=== PATIENT | male | born 1970 | race Caucasian/White ===

== ENCOUNTER 2022-10-12 15:52 | Emergency (ER) | payer BC, OTHER ==
[2022-10-12] MEDS ORDERED: SODIUM CHLORIDE 0.9% 500 ML INFUS.BAG IV ONE (16:14)
[2022-10-12 16:36] VITALS: BMI 23.3
[2022-10-12 16:53] LABS: BASO % 0.3 % (0-2.0); EOS % 0.6 % (0-4.5); HEMATOCRIT 47.4 % (35.4-49); HEMOGLOBIN 16.1 GM/dL (11.7-16.9); MCH 30.8 pg (25.7-33.7); MCHC 33.9 g/dl (32.0-35.9); MEAN CELL VOLUME 90.7 fl (80-96); MEAN PLT VOLUME 8.6 fl (7.5-11.1); MONO % 6.8 % (3.8-10.2); NEUT % 65.3 % (42.8-82.8); PLATELET COUNT 268 10^3/uL (134-434); RBC 5.22 M/mm3 (4.00-5.60); RDW 15.7 % (11.9-15.9); WHITE BLOOD COUNT 12.3 K/mm3 (4.0-10.0)
[2022-10-12 17:11] LABS: VENOUS BASE EXCESS -8.7 mmol/L (-2-2); VENOUS O2 SATURATION 46.6 % (70-80); VENOUS PH 7.309 (7.310-7.410)
[2022-10-12 17:19] LABS: CALCIUM 8.9 mg/dL (8.5-10.1)
[2022-10-12 17:20] LABS: ALBUMIN 4.1 g/dl (3.4-5.0)
[2022-10-12 17:24] LABS: BILIRUBIN,TOTAL 0.3 mg/dL (0.2-1); TOT PROT 7.5 g/dl (6.4-8.2)
[2022-10-12] MEDS ORDERED: LORazepam 2 MG/ML SDV VIAL IVPUSH ONE (17:43)
[2022-10-12 17:45] LABS: LACTIC ACID 3.9 mmol/L (0.4-2.0)
[2022-10-12] MEDS ORDERED: THIAMINE HCL 200 MG/2 ML VIAL IVPB ONE (18:31)
[2022-10-12] MEDS ORDERED: DEXTROSE 5%-LACTATED RINGERS 1,000 ML IV SCH (18:45)
[2022-10-12] MEDS ORDERED: THIAMINE HCL 200 MG/2 ML VIAL ONE (19:35)
[2022-10-12 20:52] LABS: LACTIC ACID 4.2 mmol/L (0.4-2.0)
[2022-10-12 21:37] VITALS: RESP 18
[2022-10-13 00:59] VITALS: BP 114/71; PULSE 89; TEMP 97.6
[2022-10-13 01:00] LABS: LACTIC ACID 3.9 mmol/L (0.4-2.0)
== END 2022-10-13 02:10 | disposition short-term general hospital (02) ==
LOC: JER 15:52
PROC: 3E033NZ Introduction of Analgesics, Hypnotics, Sedatives into Peripheral Vein, Percutaneous Approach (ICD-10-PCS; principal; 2022-10-12)
PROC: 3E033GC Introduction of Other Therapeutic Substance into Peripheral Vein, Percutaneous Approach (ICD-10-PCS; 2022-10-12)
DX: F10.929 Alcohol use, unspecified with intoxication, unspecified (principal); R41.2 Retrograde amnesia; Z20.822 Contact with and (suspected) exposure to COVID-19
CPT/HCPCS: 0241U-QW; 36415; 70450-TC; 71045-TC-FY; 72125-TC; 80053; 80307; 82803; 83605; 85025; 93005; 93010; 99285-25

== ENCOUNTER 2022-10-13 02:40 | Inpatient (IN) | payer BC, OTHER ==
[2022-10-13] MEDS ORDERED: NICOTINE POLACRILEX 2 MG GUM BUC PRN (02:52)
[2022-10-13] MEDS ORDERED: guaiFENesin 600 MG TABLET.ER (FP) PO PRN (02:52)
[2022-10-13] MEDS ORDERED: IBUPROFEN 600 MG TABLET (FP) PO PRN (02:52)
[2022-10-13] MEDS ORDERED: MAG HYDROX/AL HYDROX/SIMETH 30 ML UNIT-DOSE CUP PO PRN (02:52)
[2022-10-13] MEDS ORDERED: POLYETHYLENE GLYCOL (HEALTHYLAX) 3350 17 GM PACKET PO PRN (02:52)
[2022-10-13] MEDS ORDERED: NALOXONE HCL (KLOXXADO) 8 MG SPRAY NS PRN (02:52)
[2022-10-13] MEDS ORDERED: LOPERAMIDE HCL 2 MG CAPSULE PO PRN (02:52)
[2022-10-13] MEDS ORDERED: BENZOCAINE/MENTHOL (CHLORASEPTIC ) LOZENGE MM PRN (02:52)
[2022-10-13] MEDS ORDERED: ONDANSETRON *ODT* 4 MG TABLET SL PRN (02:52)
[2022-10-13] MEDS ORDERED: BISMUTH SUBSALICYLATE 524 MG/30 ML PO PRN (02:52)
[2022-10-13] MEDS ORDERED: NALOXONE HCL 0.4 MG/ML VIAL IM PRN (02:52)
[2022-10-13] MEDS ORDERED: BENZONATATE 200 MG CAPSULE PO PRN (02:52)
[2022-10-13] MEDS ORDERED: DICYCLOMINE HCL 10 MG CAPSULE PO PRN (02:52)
[2022-10-13] MEDS ORDERED: IBUPROFEN 400 MG TABLET (FP) PO PRN (02:52)
[2022-10-13] MEDS ORDERED: MAGNESIUM HYDROX 2400MG/30ML ORAL SUSPENSION 30 ML CUP PO PRN (02:52)
[2022-10-13] MEDS ORDERED: chlordiazePOXIDE HCL 25 MG CAPSULE PO PRN (02:52)
[2022-10-13] MEDS ORDERED: ACETAMINOPHEN 325 MG TABLET (FP) PO PRN (02:52)
[2022-10-13 03:01] VITALS: BMI 19.9
[2022-10-13] MEDS: chlordiazePOXIDE HCL 25 MG CAPSULE PO SCH ×4 (04:45→22:19)
[2022-10-13] MEDS ORDERED: chlordiazePOXIDE HCL 25 MG CAPSULE PO SCH (05:00)
[2022-10-13] MEDS ORDERED: NICOTINE 14 MG/24 HOURS TOPICAL PATCH TD SCH (10:00)
[2022-10-13] MEDS: PRENATAL VITAMINS W/ FOLIC ACID TABLET (FP) PO SCH (10:39)
[2022-10-13] MEDS: NICOTINE 14 MG/24 HOURS TOPICAL PATCH TD SCH (10:41)
[2022-10-13] MEDS: THIAMINE HCL 100 MG TABLET (FP) PO SCH (22:19)
[2022-10-13] MEDS: MELATONIN 5 MG TABLETS PO SCH (22:19)
[2022-10-14] MEDS ORDERED: chlordiazePOXIDE HCL 25 MG CAPSULE PO SCH (05:00)
[2022-10-14] MEDS: chlordiazePOXIDE HCL 10 MG CAPSULE PO SCH ×4 (05:18→22:26)
[2022-10-14] MEDS: PRENATAL VITAMINS W/ FOLIC ACID TABLET (FP) PO SCH (10:07)
[2022-10-14] MEDS: NICOTINE 14 MG/24 HOURS TOPICAL PATCH TD SCH (10:08)
[2022-10-14 11:49] LABS: HEMATOCRIT 39.9 % (35.4-49); HEMOGLOBIN 13.8 GM/dL (11.7-16.9); MCH 31.3 pg (25.7-33.7); MCHC 34.7 g/dl (32.0-35.9); MEAN CELL VOLUME 90.5 fl (80-96); MEAN PLT VOLUME 9.4 fl (7.5-11.1); PLATELET COUNT 220 10^3/uL (134-434); RBC 4.41 M/mm3 (4.00-5.60); RDW 15.6 % (11.9-15.9)
[2022-10-14 12:02] LABS: CALCIUM 8.6 mg/dL (8.5-10.1); CREATININE 0.9 mg/dL (0.55-1.3)
[2022-10-14 12:03] LABS: ALBUMIN 3.5 g/dl (3.4-5.0); BLOOD UREA NITROGEN 15.3 mg/dL (7-18)
[2022-10-14 12:06] LABS: BILIRUBIN,TOTAL 0.5 mg/dL (0.2-1); TOT PROT 6.6 g/dl (6.4-8.2)
[2022-10-14] MEDS ORDERED: SODIUM POLYSTYRENE SULFONATE 15 GM/60 ML BOTTLE PO ONE (13:42)
[2022-10-14] MEDS: THIAMINE HCL 100 MG TABLET (FP) PO SCH (22:25)
[2022-10-14] MEDS: MELATONIN 5 MG TABLETS PO SCH (22:25)
[2022-10-15] MEDS ORDERED: chlordiazePOXIDE HCL 10 MG CAPSULE PO PRN
[2022-10-15] MEDS ORDERED: chlordiazePOXIDE HCL 10 MG CAPSULE PO SCH (05:00)
[2022-10-15] MEDS: chlordiazePOXIDE HCL 10 MG CAPSULE PO SCH ×2 (05:21→18:15)
[2022-10-15] MEDS: PRENATAL VITAMINS W/ FOLIC ACID TABLET (FP) PO SCH (10:15)
[2022-10-15] MEDS: NICOTINE 14 MG/24 HOURS TOPICAL PATCH TD SCH (10:15)
[2022-10-15 17:08] VITALS: BP 162/97; PULSE 80; RESP 16; TEMP 98
[2022-10-16] MEDS ORDERED: chlordiazePOXIDE HCL 10 MG CAPSULE PO SCH (05:00)
[2022-10-17] MEDS ORDERED: chlordiazePOXIDE HCL 10 MG CAPSULE PO ONE (05:00)
== END 2022-10-15 17:30 | disposition left against medical advice (07) | DRG 894 ==
LOC: YASAS 02:40 → Y3N 04:09
PROVIDERS: ADMIT Allergy & Immunology; ATTEND Surgery
PROC: HZ2ZZZZ Detoxification Services for Substance Abuse Treatment (ICD-10-PCS; principal; 2022-10-13)
DX: F10.230 Alcohol dependence with withdrawal, uncomplicated (principal); F17.210 Nicotine dependence, cigarettes, uncomplicated; F19.24 Other psychoactive substance dependence with psychoactive substance-induced mood disorder; E87.5 Hyperkalemia; F10.220 Alcohol dependence with intoxication, uncomplicated; R41.82 Altered mental status, unspecified
CPT/HCPCS: 36415; 80053; 84132; 85027; 86780